=== PATIENT | male | born 1990 | race Caucasian/White ===

== ENCOUNTER 2018-09-23 10:19 | Inpatient (IN) | payer OTHER ==
[~2018-09-23] VITALS: Ht 180.3 cm; Wt 65.0 kg
[2018-09-23] MEDS ORDERED: normal saline 1000ML IV soln IV ONE (10:45)
[2018-09-23 11:16] VITALS: BP 127/80
[2018-09-23 11:27] LABS: BASOPHILS % (AUTO) 0.2 % (0-1); EOSINOPHILS # (AUTO) 0.2 X10'3 (0-0.9); EOSINOPHILS % (AUTO) 1.8 % (0-6); HEMATOCRIT 39.4 % (42.0-52.0); HEMOGLOBIN 13.2 g/dl (14.0-17.9); LYMPHOCYTES # (AUTO) 1.6 X10'3 (1.1-4.8); LYMPHOCYTES % (AUTO) 13.7 % (21-51); MEAN CORPUSCULAR HEMOGLOBIN 31.7 PG (27.0-31.0); MEAN CORPUSCULAR HGB CONC 33.5 % (33.0-36.5); MEAN CORPUSCULAR VOLUME 94.5 FL (78-98); MEAN PLATELET VOLUME 6.3 FL (7.4-10.4); MONOCYTES # (AUTO) 0.9 X10'3 (0-0.9); MONOCYTES % (AUTO) 7.5 % (2-12); NEUTROPHILS # (AUTO) 8.8 X10'3 (1.8-7.7); NEUTROPHILS % (AUTO) 76.8 % (42-75); PLATELET COUNT 408 X10'3 (140-440); RED BLOOD COUNT 4.18 X10'6 (4.70-6.10); WHITE BLOOD COUNT 11.4 X10'3 (4.5-11.0)
[2018-09-23 11:43] LABS: ALANINE AMINOTRANSFERASE 24 U/L (12-78); ALBUMIN 3.3 G/DL (3.4-5.0); ALBUMIN/GLOBULIN RATIO 0.8 (1.1-1.5); ALKALINE PHOSPHATASE 80 IU/L (46-116); ANION GAP 8 (8-16); ASPARTATE AMINO TRANSFERASE 13 U/L (10-37); BILIRUBIN,TOTAL 0.4 MG/DL (0.1-1.0); BLOOD UREA NITROGEN 11 MG/DL (7-18); BUN/CREATININE RATIO 13.6 (5.4-32.0); CHLORIDE 101 MMOL/L (99-107); CREATININE 0.81 MG/DL (0.60-1.10); GLUCOSE 114 MG/DL (70-104); POTASSIUM 3.7 MMOL/L (3.5-5.1); SODIUM 137 MMOL/L (135-145); TOTAL CARBON DIOXIDE 27.7 MMOL/L (24-32); TOTAL PROTEIN 7.3 G/DL (6.4-8.2); eGFR > 90 ML/MIN
[2018-09-23] MEDS ORDERED: iohexol 300mg/ml 100ml inj. ONE (11:45)
[2018-09-23 12:00] LABS: LARGE PLATELETS FEW; PLATELET ESTIMATE NORMAL
[2018-09-23] MEDS ORDERED: CEPH-571 PO (13:15)
[2018-09-23] MEDS ORDERED: DOXY100C43 PO (13:15)
[2018-09-23] MEDS ORDERED: morphine 4 MG/ML inj SYRINge IV ONE (13:20)
[2018-09-23] MEDS ORDERED: LORazepam 2 mg/ml vial IV ONE (13:20)
[2018-09-23] MEDS ORDERED: CefTRIAXone 2gm/D5W 50ml 50 ML IV ONE (13:30)
[2018-09-23] MEDS ORDERED: vancomycin/NS 1 GM ADD-VANTAGE 250 ML IV ONE (13:30)
[2018-09-23] MEDS ORDERED: NO HOME MEDS (13:49)
[2018-09-23] MEDS ORDERED: acetaminophen 325mg tablet PO PRN (14:15)
[2018-09-23] MEDS ORDERED: magnesium hydroxide 30ml (MOM) UD suspension PO PRN (14:15)
[2018-09-23] MEDS ORDERED: ondansetron/PF 4mg/2ml inj IV PRN (14:15)
[2018-09-23] MEDS ORDERED: normal saline 1000ml 1,000 ML IV SCH (14:15)
[2018-09-23] MEDS ORDERED: HYDROcodone/acetaminophen 5mg/325mg tablet PO PRN (14:15)
[2018-09-23] MEDS ORDERED: morphine 2 MG/ML inj. syringe IV PRN (14:15)
[2018-09-23] MEDS ORDERED: mag hydrox/Alum hydrox/simeth 30ml oral suspension PO PRN (14:15)
[2018-09-23] MEDS ORDERED: levoFLOXACIN-Levaquin 750MG/D5 150 ML IV SCH (14:21)
[2018-09-23] MEDS ORDERED: nicotine 21mg patch - 24 hr TD ONE (15:45)
[2018-09-23] MEDS ORDERED: heparin, porcine 5000 units/ml vial SQ SCH (20:00)
[2018-09-23] MEDS ORDERED: vancomycin/NS 1 GM ADD-VANTAGE 250 ML IV SCH (21:00)
[2018-09-24] MEDS ORDERED: VANCOMYCIN LEVEL IV ONE (12:30)
== END 2018-09-23 19:50 | disposition left against medical advice (07) | DRG 603 ==
LOC: ER 10:19 → ED HOLD 14:15 → ORTHO 4S 19:30 → CMPBEDREQ 19:55
PROVIDERS: ADMIT Family Medicine; ATTEND Family Medicine
PROC: BP2N1ZZ Computerized Tomography (CT Scan) of Right Hand using Low Osmolar Contrast (ICD-10-PCS; principal; 2018-09-23)
DX: L03.113 Cellulitis of right upper limb (principal); L02.511 Cutaneous abscess of right hand; F11.10 Opioid abuse, uncomplicated; F15.10 Other stimulant abuse, uncomplicated; F17.210 Nicotine dependence, cigarettes, uncomplicated; Z53.21 Procedure and treatment not carried out due to patient leaving prior to being seen by health care provider
CPT/HCPCS: 36415; 73201; 80053; 83605; 84145; 85025; 87040; 87070; 96361; 96365; 96368; 96375; 99285; G0378; J0696; J2060; J2270; J3370; J7030; Q9967